=== PATIENT | male | born 1960 | race Caucasian/White ===

== ENCOUNTER 2018-07-16 11:11 | Emergency (ER) | payer MEDICARE, MEDICAID ==
[~2018-07-16] VITALS: Ht 162.6 cm; Wt 93.4 kg
[2018-07-16] MEDS ORDERED: SYNTHROID50 MCG PO (11:29)
[2018-07-16] MEDS ORDERED: IRON325 PO (11:30)
[2018-07-16] MEDS ORDERED: CULTURELLE1 EACH PO (11:30)
[2018-07-16] MEDS ORDERED: AMITIZA 24 MCG24 MC1 PO (11:30)
[2018-07-16] MEDS ORDERED: HALOPERIDOL 5 MG5 MG PO ×2 (11:31→11:39)
[2018-07-16] MEDS ORDERED: CLARITIN10 MG PO (11:31)
[2018-07-16] MEDS ORDERED: MUCINEX600 MG PO (11:31)
[2018-07-16] MEDS ORDERED: RISPERDAL 3 MG T3 MG PO (11:32)
[2018-07-16] MEDS ORDERED: ZOLOFT50 MG PO (11:34)
[2018-07-16] MEDS ORDERED: VESICARE10 M1 PO (11:34)
[2018-07-16] MEDS ORDERED: TUMS PO (11:35)
[2018-07-16] MEDS ORDERED: BACLOFEN 10MG T10 MG PO (11:35)
[2018-07-16] MEDS ORDERED: FIBER-LAX625 MG PO (11:36)
[2018-07-16] MEDS ORDERED: CONSTULOSE10 GM/152 PO (11:36)
[2018-07-16] MEDS ORDERED: PERIDEX15 ML PO (11:36)
[2018-07-16] MEDS ORDERED: STOOL SOFTENER1 EAC2 PO (11:37)
[2018-07-16] MEDS ORDERED: ZANTAC 150MG T150 MG PO (11:37)
[2018-07-16] MEDS ORDERED: PROSCAR 5MG TABL5 MG PO (11:38)
[2018-07-16] MEDS ORDERED: ATIVAN0.5 MG PO (11:38)
[2018-07-16] MEDS ORDERED: RISPERIDONE ODT4 MG PO (11:39)
[2018-07-16] MEDS ORDERED: SIMVASTATIN40 MG PO (11:39)
[2018-07-16] MEDS ORDERED: TYLENOL325 MG PO (11:40)
[2018-07-16] MEDS ORDERED: FLOMAX0.4 MG PO (11:40)
[2018-07-16] MEDS ORDERED: CALMOSEPTINE O3.5 GM TOP (11:40)
[2018-07-16] MEDS ORDERED: TESSALON PERLE100 MG PO (11:41)
[2018-07-16] MEDS ORDERED: MILK OF MA400 MG/5 M PO (11:42)
[2018-07-16] MEDS ORDERED: NYAMYC15 GM TOP (11:42)
[2018-07-16] MEDS ORDERED: ONDANSETRON HCL4 M2 PO (11:42)
[2018-07-16] MEDS ORDERED: TRIPLE ANTIBIOT28 G2 TOP (11:43)
[2018-07-16] MEDS ORDERED: ROLAIDS CHEWAB1 EAC1 PO (11:43)
[2018-07-16 12:21] LABS: ABSOLUTE EOSINOPHILS 0.2 thou/uL (0.0-0.7); ABSOLUTE LYMPHOCYTES 0.6 thou/uL (0.8-5.3); ABSOLUTE MONOCYTES 0.7 thou/uL (0.0-1.2); ABSOLUTE NEUTROPHILS 3.5 thou/uL (1.6-8.1); BASOPHILS 0.7 %; EOSINOPHILS 3.8 %; HEMOGLOBIN 13.1 gm/dL (14.0-18.0); LYMPHOCYTES 12.2 %; MCH 29.7 pg (26.0-34.0); MCHC 33.5 g/dL (28.0-37.0); MCV 88.7 fL (80.0-100.0); MONOCYTES 13.2 %; MPV 8.1 fl. (7.2-11.1); NUCLEATED RBCS 0 /100WBC; PLATELET COUNT* 195 thou/uL (150-400); POLYS 70.1 %; RBC 4.39 mil/uL (4.50-6.00); RDW-CV 14.4 % (10.5-14.5)
[2018-07-16 12:31] LABS: CREATININE 0.9 mg/dL (0.6-1.3); POTASSIUM 3.8 mmol/L (3.5-5.1)
[2018-07-16 12:34] LABS: APTT 31.3 Seconds (25.0-31.3); PROTIME 10.4 Seconds (9.20-11.50)
[2018-07-16 12:36] LABS: ALBUMIN 3.3 g/dL (3.4-5.0); TOTAL BILIRUBIN 0.3 mg/dL (<0.1-1.0)
[2018-07-16] MEDS ORDERED: MEDROLDOSEPACK PO (14:51)
[2018-07-16] MEDS ORDERED: NABUMETONE 750750 M1 PO (14:51)
[2018-07-16 15:03] VITALS: BP 129/71
== END 2018-07-16 15:05 | disposition home or self-care (01) ==
LOC: M.ERS 11:11
PROVIDERS: Nurse Practitioner Family
DX: L95.8 Other vasculitis limited to the skin (principal); M79.89 Other specified soft tissue disorders; E78.5 Hyperlipidemia, unspecified; F20.9 Schizophrenia, unspecified; F32.9 Major depressive disorder, single episode, unspecified; K21.9 Gastro-esophageal reflux disease without esophagitis; F41.9 Anxiety disorder, unspecified; E03.9 Hypothyroidism, unspecified; G47.30 Sleep apnea, unspecified; Z86.2 Personal history of diseases of the blood and blood-forming organs and certain disorders involving the immune mechanism

== ENCOUNTER 2018-07-26 17:55 | Inpatient (IN) | payer MEDICARE, MEDICAID ==
[~2018-07-26] VITALS: Ht 162.6 cm; Wt 93.1 kg
--- NOTE | ~2018-07-26 | CON ---
[facility] [address] [place] [address] CONSULTATION Name: ABILIO RUSH Room: [address] IN .R.#: [id number] Admission: 07/26/18 Attend Phys: Ani Flores MD Discharge: Date of : 62 Report #: [id number] THIS REPORT FOR: //name// CC: RAMANA physician/PCP Ani Flores DATE OF SERVICE: 07/27/2018 HISTORY OF PRESENT ILLNESS: This is a 58-year-old male patient who was evaluated by me for a poorly defined history. His speech is affected and it is difficult to get history from him. I called the patient's group billing coordinator and she provided some history. He is in [place] [facility] [place] [facility] year, but she has known him even prior to that. This patient has multiple problems. He has cerebral palsy and he is paraplegic. Paraplegia is going on for long time, but is progressively becoming worst. She developed a rash and they saw the family physician and then, they saw an Emergency Room physician, they thought the patient had vasculitis, but they did not have any followup appointment with a adjunct nursing faculty. The history for which she is admitted is not very clear. Apparently, he is a schizophrenic and he was having some flare-up in that regard. Somebody noticed that his eyes were rolling backward. He just said he was not feeling right. He was drooling more than normal. That is the best history I can get. The patient indicates that he does not feel well, but he cannot tell me why he is not feeling well. REVIEW OF SYSTEMS: Partly from the patient, partly from the cytogenetics laboratory manager of the [place] [facility] and partly from the records. It has been noted in the record that he had some auditory hallucination, hyperlipidemia, schizophrenia, non-Hodgkin lymphoma, allergic rhinitis, major depression, cerebral palsy, one of the records indicates malignant neoplasm of the bronchus and lungs and apparently, he had a ventricular shunt in, but it is not clear if it is still in or not. He does have a history of anxiety, hypothyroidism, sleep apnea. There is some history, which states that he has urinary retention, but when I talked to the cytogenetics laboratory manager, he said he is able to go by himself. 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 He is on a lot of medications including some psychiatric medications. This was the relevant 14-point review of systems as I can get. PAST MEDICAL HISTORY: Looks like is positive for schizophrenia and cerebral diplegia. FAMILY HISTORY: Unavailable. SOCIAL HISTORY: He lives in a [place] [facility] [place] and I talked to the [place] [address] CONSULTATION Name: ABILIO RUSH Room: [address] IN .R.#: [id number] Admission: 07/26/18 Attend Phys: Ani Flores MD Discharge: Date of : 62 Report #: [id number] PHYSICAL EXAMINATION: Pretty limited. He does not cooperate very well with examination. He is alert. He is responsive. He will sometime follow commands. His speech is pretty dysarthric and very difficult to understand. I cannot tell about the memory and fund of knowledge. Cranial nerve examination 2-12 was attempted. I cannot tell about the visual field or fundus examination because he does not cooperate much. His neuromuscular examination was attempted. He has a flicker of movement in his both feet, but he did not move his legs for me. When he relaxes, I think the reflexes are there. He gets position sense most of the time right. He does have increased tone, but that is his baseline. I could not look at the fundus, difficult to do cerebellar examinations on him. He has a petechial rash all over his body. His cardiac examination appear noncontributory. He does not appear to have any respiratory difficulty or rhonchi. He does not have much edema, cyanosis or jaundice. His blood pressure is 112/64, respiration is 16, pulse is 80, temperature is 98.4. LABORATORY DATA: His white count is 6.4. Sodium is normal. He did have a CT scan of the head and does not appear to be showing any acute changes. He does have some metal in his brain, which appeared to be the wires, I am not sure what exactly it is. I need to talk to the radiologist about that. IMPRESSION: This patient appeared to have multiple problems. I am not certain what the etiology of the patient's symptom is and how many problem he is having at the moment. We will exclude the possibility of seizure in this patient, but the history is not very classical. His schizophrenia may be decompensating, but he also has trouble with schizophrenia before and I think he needs a psychiatric consult. He has a dermatological rash, which needs to be further worked up. No adjunct nursing faculty comes here, but I am not sure whether that has any relation to that. If his diplegia is worse, then we need to workup his spine to make sure there are no associated abnormalities there. This is going on for more than a year. Chances of finding something reversible is remote, but I think we need to work him up if we can. That is not easy because he cannot provide any history and I cannot tell whether there is any contraindication for doing an MRI or not. RECOMMENDATION: 1. I will try to talk to the radiologist to see if there is any contraindication for doing an MRI on the basis of the CT of the head he had. 2. I will get an EEG. 3. I will suggest a psychiatric consult. 4. He also needs a Dermatology consult, but no adjunct nursing faculty comes here. 5. We will get him evaluated by PT, [place] [address] CONSULTATION Name: ABILIO RUSH Room: [address] IN [facility]#: [id number] Admission: 07/26/18 Attend Phys: Ani Flores MD Discharge: Date of : 62 Report #: [id number] I am off for next four days and Dr. Tijerina will follow up this patient until next week. Thank you very much for this referral. By: 0902 25Adi Brasher MD /nt
[~2018-07-26 17:55] MED LIST: AMITIZA 24 MCG24 MC1 PO; ATIVAN0.5 MG PO; BACLOFEN 10MG T10 MG PO; CALMOSEPTINE O3.5 GM TOP; CLARITIN10 MG PO; CONSTULOSE10 GM/152 PO; CULTURELLE1 EACH PO; FIBER-LAX625 MG PO; FLOMAX0.4 MG PO; HALOPERIDOL 5 MG5 MG PO; IRON325 PO; MEDROLDOSEPACK PO; MILK OF MA400 MG/5 M PO; MUCINEX600 MG PO; NABUMETONE 750750 M1 PO; NYAMYC15 GM TOP; ONDANSETRON HCL4 M2 PO; PERIDEX15 ML PO; PROSCAR 5MG TABL5 MG PO; RISPERDAL 3 MG T3 MG PO; RISPERDAL4 MG PO; ROLAIDS CHEWAB1 EAC1 PO; SIMVASTATIN40 MG PO; STOOL SOFTENER1 EAC2 PO; SYNTHROID50 MCG PO; TESSALON PERLE100 MG PO; TRIPLE ANTIBIOT28 G2 TOP; TUMS PO; TYLENOL325 MG PO; VESICARE10 M1 PO; ZANTAC 150MG T150 MG PO; ZOLOFT50 MG PO
[2018-07-26 18:02] VITALS: BP 152/92
[2018-07-26 19:06] LABS: ABSOLUTE BASOPHILS 0.1 thou/uL (0.0-0.2); ABSOLUTE EOSINOPHILS 0.2 thou/uL (0.0-0.7); ABSOLUTE MONOCYTES 0.8 thou/uL (0.0-1.2); ABSOLUTE NEUTROPHILS 4.4 thou/uL (1.6-8.1); BASOPHILS 0.8 %; EOSINOPHILS 2.5 %; HEMATOCRIT 39.4 % (42.0-52.0); HEMOGLOBIN 12.9 gm/dL (14.0-18.0); MCH 29.2 pg (26.0-34.0); MCHC 32.8 g/dL (28.0-37.0); MCV 88.9 fL (80.0-100.0); MONOCYTES 12.4 %; MPV 8.5 fl. (7.2-11.1); NUCLEATED RBCS 0 /100WBC; PLATELET COUNT* 216 thou/uL (150-400); POLYS 68.3 %; RBC 4.43 mil/uL (4.50-6.00); RDW-CV 14.4 % (10.5-14.5); WBC 6.4 thou/uL (4.0-11.0)
[2018-07-26 19:15] LABS: ANION GAP 7 mmol/L (7-16); BUN 9 mg/dL (7-18); CALCIUM 8.7 mg/dL (8.5-10.1); CHLORIDE 106 mmol/L (98-107); CO2 31 mmol/L (21-32); CREATININE 0.9 mg/dL (0.6-1.3); GLUCOSE 91 mg/dL (70-99); POTASSIUM 3.9 mmol/L (3.5-5.1); SODIUM 144 mmol/L (136-145)
[2018-07-26 19:17] LABS: APTT 29.4 Seconds (25.0-31.3); PROTIME 10.7 Seconds (9.20-11.50)
[2018-07-26 19:27] LABS: ALBUMIN 3.3 g/dL (3.4-5.0); ALKALINE PHOSPHATASE 65 U/L (46-116); LIPASE 84 U/L (73-393); SGOT 18 U/L (15-37); SGPT 20 U/L (30-65); TOTAL BILIRUBIN 0.3 mg/dL (<0.1-1.0); TOTAL PROTEIN 6.9 g/dL (6.4-8.2); TROPONIN-I LEVEL <0.06 ng/mL (<0.06)
[2018-07-26 21:50] LABS: URINE BILIRUBIN NEGATIVE (Negative); URINE BLOOD NEGATIVE (Negative); URINE CLARITY CLEAR; URINE COLOR YELLOW; URINE GLUCOSE-RANDOM NEGATIVE (Negative); URINE KETONES NEGATIVE (Negative); URINE LEUKOCYTES-REFLEX NEGATIVE (Negative); URINE NITRITE-REFLEX NEGATIVE (Negative); URINE PROTEIN NEGATIVE (Negative); URINE SPECIFIC GRAVITY 1.015 (1.005-1.030); URINE UROBILINOGEN 0.2 E.U./dl (0.2-1.0)
[2018-07-26 21:59] LABS: AMP/METHAMP Negative (Negative); BARBITURATES Negative (Negative); BENZODIAZEPINES Negative (Negative); COCAINE Negative (Negative); METHADONE Negative (Negative); OPIATES Negative (Negative); PCP Negative (Negative); THC Negative (Negative)
[2018-07-26 22:14] VITALS: BP 160/84
[2018-07-26] MEDS ORDERED: COLACE100 MG PO (22:55)
[2018-07-26 22:56] VITALS: BP 158/85
[2018-07-26] MEDS ORDERED: NEOSPORIN OIN28.3 GM TOP (22:58)
[2018-07-26] MEDS ORDERED: CALMOSEPTINE OI71 GM TOP (23:00)
[2018-07-26] MEDS ORDERED: GUAIFENESIN DM S5 ML PO (23:03)
[2018-07-27 04:00] VITALS: BP 112/64
--- NOTE | 2018-07-27 05:53 | NUR ---
Received report and assumed care of patient from ER approx 2215. Patient alert and oriented to himself, place, and somewhat situation. Unable to state full birthday and current year. Patient denies pain and discomfort. VSS on room air. Patient's caregiver from care home at bedside and assisted with admission history. Patient has cerebral palsy and typically wears bilat leg braces and is only able to pivot using grab bar to his electric wheelchair. However, caregiver has taken leg braces and wc home with her, along with all other patient belongings. Patient is on nectar thickened liquids and [facility] soft diet. Small pressure ulcer to left buttock, pictures taken and dressed with bordered optifoam. Repositioned q2h. Call light within reach.
--- NOTE | 2018-07-27 11:14 | NUR ---
CM spoke with Pt's warehouse associate, Ashwini, at his correction, Erick Chacon. Staff assist with ADLs, per CG, Pt's legs don't move alot but he is able to stand with assist, but does not ambulate. Pt uses an electric wc for mobility. No home o2. Pt is able to feed himself. Pt does not have a legal guardian or DPOA, Pt's father is supportive and involved in POC. Hx of HH. No hx of SNF. Goal is home at nm. Following.
[2018-07-27 11:37] VITALS: BP 121/76
[2018-07-27] MEDS ORDERED: NYAMYC15 GM TOP (12:04)
[2018-07-27 12:35] LABS: ABSOLUTE EOSINOPHILS 0.1 thou/uL (0.0-0.7); ABSOLUTE LYMPHOCYTES 0.4 thou/uL (0.8-5.3); ABSOLUTE MONOCYTES 0.6 thou/uL (0.0-1.2); ABSOLUTE NEUTROPHILS 5.2 thou/uL (1.6-8.1); BASOPHILS 0.4 %; EOSINOPHILS 2.1 %; HEMATOCRIT 35.7 % (42.0-52.0); HEMOGLOBIN 11.9 gm/dL (14.0-18.0); LYMPHOCYTES 6.3 %; MCH 29.3 pg (26.0-34.0); MCHC 33.4 g/dL (28.0-37.0); MPV 8.8 fl. (7.2-11.1); NUCLEATED RBCS 0 /100WBC; PLATELET COUNT* 169 thou/uL (150-400); POLYS 82.2 %; RBC 4.06 mil/uL (4.50-6.00); RDW-CV 14.2 % (10.5-14.5); WBC 6.3 thou/uL (4.0-11.0)
--- NOTE | 2018-07-27 12:42 | NUR ---
WOUND NURSE: PATIENT SEEN TO [facility] 2 PRESSURE ULCER ON LEFT BUTTOCK. PRESENTS WITH PARTIAL THICKNESS TISSUE LOSS MEASURIN 0.3 X 0.3 X 0.1 CM. SCANT SEROUS DRAINAGE ON OLD DRESSING. NO SIGNIFICANT PERIWOUND REDNESS, WARMTH OR INDURATION. PATIENT MINIMAL VERBALIZATION AND NOT REPORTING RELATED PAIN. CLEANSED WTIH AREA WITH CLEANSING WIPES, APPLIED SKIN PREP TO PERIWOUND TISSUE. COVERED WITH A BORDERED FOAM DRESSING. PLAN FOR CHANGE EVERY 3 DAYS AND NEEDED. EVERY 1 TO 2 HOUR SIDE TO SIDE REPOSITIONIN SUGGESTED.
[2018-07-27 12:57] LABS: CALCIUM 8.4 mg/dL (8.5-10.1); CREATININE 0.7 mg/dL (0.6-1.3); MAGNESIUM 1.9 mg/dL (1.8-2.4); POTASSIUM 3.4 mmol/L (3.5-5.1); TOTAL BILIRUBIN 0.3 mg/dL (<0.1-1.0); TOTAL PROTEIN 6.3 g/dL (6.4-8.2)
[2018-07-27 16:31] VITALS: BP 98/72
--- NOTE | 2018-07-27 17:36 | EKG ---
[place] [address] ELECTROCARDIOGRAM REPORT Name: ABILIO RUSH Room: [address] ADM IN .R.#: [id number] Admission: 07/26/18 Attend Phys: Ani Flores MD Discharge: Date of : 62 Report #: [id number] THIS REPORT FOR: //name// [facility] ED Test Date: 2018-07-26 Test Time: 19:09:27 Pat Name: ABILIO RUSH Department: Room: [facility] Gender: M Landcare Facilitator: [place] : 1960 Requested By: Ninfa Borrero Order Number: [id number] MD: ePdro Elam Measurements Intervals [place] Rate: 89 P: [place]: QRS: -16 QRSD: 94 T: 34 QT: 386 QTc: 470 Interpretive Statements Atrial fibrillation Inferior infarct, old No previous ECG available for comparison Electronically Signed On 07-27-2018 17:36:34 CDT by Pedro Elam [email or web address] <ELECTRONICALLY SIGNED> By: Pedro Elam MD, [facility] 07/27/18 1736 1909 08 Pedro Elam MD, FACC /EPI
--- NOTE | 2018-07-27 20:00 | NUR ---
RECEIVED REPORT AND ASSUMED CARE OF PT, ASSESSMENT COMPLETED. PT NON-VERBAL BUT ABLE TO UNDERSTAND A FEW WORDS SUCH HIS NAME. HOB ELEVATED, HAVING OCC MOIST PROD COUGH, ON RA WITH O2 SAT 95%. TELEMETRY ON SHOWING ST. WILL CONT TO MONITOR AND ASSIST NEEDED.
[2018-07-28 00:01] VITALS: BP 102/62
[2018-07-28 04:00] VITALS: BP 98/63
--- NOTE | 2018-07-28 05:44 | NUR ---
SLEPT WELL TONIGHT. SLEEP APNEA NOTED. HAVING OCC MOIST HARSH COUGH, PRODUCTIVE. PT TURNED Q 2HR, DOES NOT ASSIST WITH THIS. PT DOES HAVE A CHANGE IN MENTATION DURING TURNS, BLANK STARE. NO CHANGE WITH ASSESSMENT OR TELEMETRY, CONT TO SHOW ST/SR. HS GOALS OF REST AND SAFETY ACHIEVED. HOURLY ROUNDING OBSERVED.
[2018-07-28 12:24] VITALS: BP 112/55
--- NOTE | 2018-07-28 13:19 | NUR ---
Nutrition: Pt admitted with weakness and AMS. H/o MR, schizo, MDD, GERD, cerebral palsy. Seen for pressure ulcer on coccyx. Albumin 3. Wt: 192#. Regular diet with NO RED FOODS. RD ordered Prasanna bid to aid in wound healing. Mild risk at this time.
--- NOTE | 2018-07-28 15:23 | EKG ---
[place] [address] ELECTROCARDIOGRAM REPORT Name: ABILIO URSH Room: [address] ADM IN M.R.#: [id number] Admission: 07/26/18 Attend Phys: Ani Flores MD Discharge: Date of : 62 Report #: [id number] THIS REPORT FOR: //name// [facility] Test Date: 2018-07-28 Test Time: 12:00:29 Pat Name: ABILIO RUSH Department: Room: [address] Gender: M Accounts Specialist: 28 : 1960 Requested By: Darrell Cooley Order Number: [id number] Christo MD: Anthony Goodman Measurements Intervals [place] Rate: 87 P: 50 NM: 157 QRS: -13 QRSD: 86 T: 14 QT: 388 QTc: 467 Interpretive Statements Sinus rhythm Inferior infarct, old Compared to ECG 07/26/2018 19:09:27 Myocardial infarct finding still present Electronically Signed On 07-28-2018 15:23:27 CDT by Anthony Goodman [email or web address] <ELECTRONICALLY SIGNED> By: Anthony Goodman MD, [facility] 07/28/18 1523 1200 1200 Anthony Goodman MD, FAC /EPI
[2018-07-28 16:19] VITALS: BP 121/67
--- NOTE | 2018-07-28 17:54 | NUR ---
NENA RESTING IN BED. UP TO WHEELCHAIR WITH MAX ASSIST X2 AND GAIT BELT. AOX4 WITH DIFFICULTY COMMUNICATING. PATIENT CXAREGIVER STATES THAT SHE FEELS HE IS AT BASELINE AND HE IS ALREADY FOLLOWED BY PSYCHIATRY OUTPATIENT. RAMON COLEMANIN COMPLETED FOR PATINT SAFETY
[2018-07-28 20:00] VITALS: BP 111/63
[2018-07-29] VITALS: BP 94/67
[2018-07-29 04:00] VITALS: BP 100/63
[2018-07-29 05:00] LABS: HEMATOCRIT 30.5 % (42.0-52.0); HEMOGLOBIN 10.4 gm/dL (14.0-18.0); MCH 30.1 pg (26.0-34.0); MCHC 34.1 g/dL (28.0-37.0); MCV 88.2 fL (80.0-100.0); MPV 8.7 fl. (7.2-11.1); RBC 3.46 mil/uL (4.50-6.00); RDW-CV 14.5 % (10.5-14.5); WBC 5.8 thou/uL (4.0-11.0)
[2018-07-29 05:06] LABS: CREATININE 0.8 mg/dL (0.6-1.3); MAGNESIUM 2.2 mg/dL (1.8-2.4); POTASSIUM 3.9 mmol/L (3.5-5.1)
--- NOTE | 2018-07-29 06:07 | NUR ---
ASSUMED CARE OF PT AFTER REPORT AT 1930. PT A&OX3. VSS. PHYSICAL ASSESSMENT COMPLETED AND CHARTED. PT ON O2 AT 2L NC. PT TRACING SR/ST ON TELE. PT DENIES ANY PAIN OR DISCOMFORT. PT TURNED TO SIDES. PT RESTED WELL ON BED. CALL LIGHT WITHIN REACH.
[2018-07-29 12:00] VITALS: BP 108/61
[2018-07-29 15:03] VITALS: BP 108/61
== END 2018-07-29 17:45 | disposition home or self-care (01) | DRG 92 ==
LOC: M.ERS 17:55 → M.2W 21:14 → M.TBA-ER 21:14 → M.2W 21:59
PROVIDERS: Internal Medicine; Nurse Practitioner Family; ADMIT Family Medicine
DX: G92 Toxic encephalopathy (principal); E44.1 Mild protein-calorie malnutrition; G80.9 Cerebral palsy, unspecified; F20.9 Schizophrenia, unspecified; R23.3 Spontaneous ecchymoses; E78.5 Hyperlipidemia, unspecified; F32.9 Major depressive disorder, single episode, unspecified; K21.9 Gastro-esophageal reflux disease without esophagitis; E03.9 Hypothyroidism, unspecified; F41.1 Generalized anxiety disorder; R13.10 Dysphagia, unspecified; T50.905A Adverse effect of unspecified drugs, medicaments and biological substances, initial encounter; Y92.89 Other specified places as the place of occurrence of the external cause; Z85.71 Personal history of Hodgkin lymphoma; Z85.118 Personal history of other malignant neoplasm of bronchus and lung; Z79.899 Other long term (current) drug therapy

== ENCOUNTER 2018-11-23 09:04 | Inpatient (IN) | payer MEDICARE, MEDICAID ==
[~2018-11-23] VITALS: Ht 162.6 cm; Wt 83.5 kg
--- NOTE | ~2018-11-23 | CON ---
[facility] [address] [place] [address] CONSULTATION Name: ABILIO RUSH Room: [address] IN .R.#: [id number] Admission: 11/23/18 Attend Phys: Darrell Cooley MD Discharge: Date of : 62 Report #: [id number] THIS REPORT FOR: //name// CC: Darrell Mobley HISTORY OF PRESENT ILLNESS: A 58-year-old male with significant schizophrenia, developmental delay, cerebral palsy, non-Hodgkin's lymphoma, hypothyroidism, who is presenting with constipation and coffee-ground emesis. It has been difficult to obtain history because the patient has speech difficulties and has a history of cerebral palsy. Most of the history has been obtained from the chart and some by interviewing the patient. The patient reports that he has had abdominal pain for several days and also reports constipation with inability to pass bowel movements without any laxatives. The patient receives daily enemas at his facility. The patient was brought in because of nausea and vomiting associated with coffee-ground emesis. There has been no hematemesis, melena or hematochezia. The patient's weight has been stable. PAST MEDICAL HISTORY: Significant for schizophrenia, non-Hodgkin's lymphoma, major depression, developmental delay, hypothyroidism. FAMILY HISTORY: Unable to obtain due to the patient's mental status. SOCIAL HISTORY: The patient lives in a fpc, does not consume alcohol, tobacco or any recreational drugs. REVIEW OF SYSTEMS: Negative except for what was mentioned in the HPI. PHYSICAL EXAMINATION: VITAL SIGNS: Temperature 36.8, pulse rate 91, blood pressure 125/69, respirations 16 per minute. The patient is saturating 96% on room air. GENERAL: The patient is alert, awake, oriented x 3. HEENT: Pupils are equal, round, reactive to light and accommodation. Mucous membranes are moist. There is no congestion. LUNGS: Clear to auscultation bilaterally. CARDIOVASCULAR: Rate and rhythm regular, S1, S2 present. ABDOMEN: Soft. There is no significant distention, guarding or rigidity. EXTREMITIES: Warm, well perfused. LABORATORY DATA: Hemoglobin 11.7, hematocrit 35.6, platelet count 200, WBC count 6.6. Sodium 141, potassium 4.0, chloride 106, bicarbonate 30, BUN 13, creatinine 0.8, total bilirubin 0.1, AST 9, ALT 16, alkaline phosphatase 55, albumin 3.0, lipase 129. IMAGING: Abdomen and pelvis CT demonstrates a large amount of stool, possibly cystitis, [place] [address] CONSULTATION Name: ABILIO RUSH Ruthie Room: [address] IN [facility]#: [id number] Admission: 11/23/18 Attend Phys: Darrell Cooley MD Discharge: Date of : 62 Report #: [id number] ASSESSMENT AND PLAN: A pleasant 58-year-old gentleman with history as outlined above, presenting with coffee-ground emesis. We will place the patient on clear liquid diets and place him on EGD for tomorrow. Further recommendations will be based on results of the EGD. By: 1741 [id number] De La Torre MD /nt
[~2018-11-23 09:04] MED LIST changes: +CALMOSEPTINE OI71 GM TOP; -CLARITIN10 MG PO; +COLACE100 MG PO; +GUAIFENESIN DM S5 ML PO; +LORATADINE 1 MG/1 ML PO; +NEOSPORIN OIN28.3 GM TOP
[2018-11-23 09:05] VITALS: BP 106/69
--- NOTE | 2018-11-23 09:13 | NUR ---
PT CAME IN VIA EMS FROM THE [facility]. STAFF MEMBER CAME IN FROM THE CENTER AND STATES THE PT IS HIS OWN GUARDIAN.
[2018-11-23 09:24] LABS: ABSOLUTE EOSINOPHILS 0.1 thou/uL (0.0-0.7); ABSOLUTE LYMPHOCYTES 0.6 thou/uL (0.8-5.3); ABSOLUTE MONOCYTES 0.7 thou/uL (0.0-1.2); ABSOLUTE NEUTROPHILS 5.1 thou/uL (1.6-8.1); BASOPHILS 0.5 %; EOSINOPHILS 1.8 %; HEMATOCRIT 35.6 % (42.0-52.0); HEMOGLOBIN 11.7 gm/dL (14.0-18.0); LYMPHOCYTES 9.2 %; MCH 27.9 pg (26.0-34.0); MCV 84.7 fL (80.0-100.0); MONOCYTES 10.2 %; MPV 8.2 fl. (7.2-11.1); NUCLEATED RBCS 0 /100WBC; PLATELET COUNT* 200 thou/uL (150-400); POLYS 78.3 %; RDW-CV 14.8 % (10.5-14.5); WBC 6.6 thou/uL (4.0-11.0)
[2018-11-23 09:33] LABS: ANION GAP 5 mmol/L (7-16); BUN 13 mg/dL (7-18); CALCIUM 8.2 mg/dL (8.5-10.1); CHLORIDE 106 mmol/L (98-107); CO2 30 mmol/L (21-32); CREATININE 0.8 mg/dL (0.6-1.3); GLUCOSE 113 mg/dL (70-99); SODIUM 141 mmol/L (136-145)
[2018-11-23 09:42] LABS: ALKALINE PHOSPHATASE 55 U/L (46-116); LIPASE 129 U/L (73-393); SGOT 9 U/L (15-37); SGPT 16 U/L (30-65); TOTAL BILIRUBIN 0.1 mg/dL (<0.1-1.0); TOTAL PROTEIN 6.5 g/dL (6.4-8.2); TROPONIN-I LEVEL <0.06 ng/mL (<0.06)
[2018-11-23 13:19] VITALS: BP 104/71
[2018-11-23 13:46] VITALS: BP 116/67
--- NOTE | 2018-11-23 14:30 | NUR ---
RECEIVED REPORT FROM RIYA RN IN ER OF EXPECTED ADMISSION AT 1317- DX: UPPER GI BLEED- PT ARRIVED TO ROOM 229 VIA CART WITH ASSITANCE VIA SLIDE X4 TO BED- WICKER WORKER PLACED ORDERED, TRACING SR/ST- PT A&O X3 WITH FORGETFULLNESS NOTED- INCONTINENT OF BOWEL AND BLADDER- BED REST IN PLACE WITH Q 2HOUR TURNS INDICATED- LCTA, RESP EVEN AND UN-LABORED- VS- 98.0 18 116/67 95 98% ON RA- ABD SOFT/ROUND/NON-TENDER, BS X4 QUADS- PT REPORTED TO HAVE HAD BM PRIOR TO TRANSFER FROM ER- CLEAR NECTAR LIQUID DIET NOTED- GI PLANS EGD HCRISTIE 11/24/18, PT TO BE NPO AT MIDNIGHT- REDNESS NOTED TO BOTTOM- SALES AND SERVICE ENGINEER AT BEDSIDE AT TIME OF ADMISSION-CALL LIGHT AND PERSONAL BELONGINGS WITH IN REACH- HOURLY ROUNDS IN PLACE R/T SAFETY/NEEDS- ALL NEEDS MET AT THIS TIME-WCTM
[2018-11-23] MEDS ORDERED: VESICARE10 M1 PO (14:35)
--- NOTE | 2018-11-23 14:35 | EKG ---
[place] [address] ELECTROCARDIOGRAM REPORT Name: ABILIO RUSH Room: [address] ADM IN .R.#: [id number] Admission: 11/23/18 Attend Phys: Darrell Cooley MD Discharge: Date of : 62 Report #: [id number] THIS REPORT FOR: //name// [facility] ED Test Date: 2018-11-23 Test Time: 09:09:42 Pat Name: ABILIO RUSH Department: Room: [facility] Gender: M Helper Metal Hanging: : 1960 Requested By: Clifton Kwok Order Number: [id number] MD: Anthony Goodman Measurements Intervals [place] Rate: 101 P: 61 [place]: 155 QRS: -10 QRSD: 82 T: 24 QT: 369 QTc: 479 Interpretive Statements Sinus tachycardia Inferior infarct, old Compared to ECG 07/28/2018 12:00:29 Sinus rhythm no longer present Myocardial infarct finding still present Electronically Signed On 11-23-2018 14:35:08 CDT by Anthony Goodman [email or web address] <ELECTRONICALLY SIGNED> By: Anthony Goodman MD, [facility] 11/23/18 9441 0909 0909 Anthony Goodman MD, [facility] /EPI
[2018-11-23] MEDS ORDERED: BENZTROPINE ME0.5 MG PO (14:37)
[2018-11-23] MEDS ORDERED: PERIDEX15 ML PO (14:39)
[2018-11-23] MEDS ORDERED: HALOPERIDOL 5 MG5 MG PO (14:40)
[2018-11-23] MEDS ORDERED: VRAYLAR3 MG PO (14:43)
[2018-11-23] MEDS ORDERED: ENEMA BOTTLE1 EACH RECTAL (14:44)
[2018-11-23 14:47] LABS: HEMATOCRIT 33.1 % (42.0-52.0)
[2018-11-23] MEDS ORDERED: ONDANSETRON HCL4 M2 PO (14:47)
[2018-11-23] MEDS ORDERED: NABUMETONE 750750 M1 PO (14:47)
[2018-11-23 16:16] VITALS: BP 125/69
[2018-11-23 18:10] LABS: HEMATOCRIT 31.4 % (42.0-52.0); HEMOGLOBIN 10.3 gm/dL (14.0-18.0); MCH 27.8 pg (26.0-34.0); MCHC 32.8 g/dL (28.0-37.0); MCV 84.8 fL (80.0-100.0); MPV 8.6 fl. (7.2-11.1); RBC 3.7 mil/uL (4.50-6.00); RDW-CV 14.7 % (10.5-14.5); WBC 5.8 thou/uL (4.0-11.0)
[2018-11-23 20:10] VITALS: BP 109/64
[2018-11-23 22:46] LABS: HEMATOCRIT 30.2 % (42.0-52.0)
[2018-11-24] VITALS (7 sets, daily range): BP systolic 94–111; BP diastolic 51–69
[2018-11-24 04:56] LABS: HEMATOCRIT 30.3 % (42.0-52.0); HEMOGLOBIN 9.9 gm/dL (14.0-18.0); MCH 27.9 pg (26.0-34.0); MCHC 32.7 g/dL (28.0-37.0); MCV 85.5 fL (80.0-100.0); MPV 8.6 fl. (7.2-11.1); RBC 3.55 mil/uL (4.50-6.00); WBC 5.2 thou/uL (4.0-11.0)
[2018-11-24 05:03] LABS: CALCIUM 8.1 mg/dL (8.5-10.1); CREATININE 0.8 mg/dL (0.6-1.3); MAGNESIUM 2.1 mg/dL (1.8-2.4); POTASSIUM 3.9 mmol/L (3.5-5.1)
--- NOTE | 2018-11-24 07:28 | NUR ---
PT ORIENTED TO SELF. KNOWS HE'S IN A HOSPITAL. ASSESSMENT DOCUMENTED. MEDS GIVEN PER EMAR. ONE AT A TIME WITH NECTER THICKENED LIQUID. PT IS A FEEDER. LW IV WITH NS @100 AND PROTONIX @20. PT SLEPT MOST OF SHIFT. NPO AFTER MN. EGD TODAY. Q2 TURN. HOURLY ROUNDINGS DONE. FALL PRECAUTION IN PLACE. WILL CONTINUE TO MONITOR.
--- NOTE | 2018-11-24 09:29 | NUR ---
ASSUMED CARE OF PT THIS AM AROUND 0715- ROLLOFF DRIVER IN PLACE ORDERED, TRACING SR- UPON ASSESSMENT PT NOTED TO BE RESTING IN BED-PT A&O X2 WITH NOTED CONFUSSION, LIMITED VERBALIZATION- INCONTINENT OF B/B- Q 2HOUR TURNS IN PLACE INDICATED- LCTA/DIMINISHED IN BASES- VSS, O2 SAT 93% ON RA- ABD FIRM/ROUND/NON-TENDER, BS X4 QUADS- LAST BM NOTED 11/23/18- IV NOTED TO LEFT WRIST INTACT, IVF AND PROTONIX INFUSSING PRESCIBED- PT NPO THIS AM FOR PLANNED EGD- PT LEFT UNIT VIA BED AROUND 0830 FOR EGD- NO C/O PAIN NOTED- ALL NEEDS MET AT THIS TIME-WCTM
--- NOTE | 2018-11-24 16:15 | NUR ---
PT CURRENTLY RESTING IN BED, WATCHING TV- MEDICAL DEVICE SALES IN PLACE ORDERED, TRACING SR- EGD COMPLETED THIS AM PRESCIBED, RESULTS NOTED IN MEDITECH- PROTONIX TO CONTINUE X24 HOURS THEN SWITCH TO PO PER GI- IV NOTED TO LEFT WRIST INTACT, IVF AND PROTONIX INFUSSING PRESCIBED- Q 2HOUR TURNS IN PLACE INDICATED- ASSISTANCE REQUIRED WITH MEALS, PUREE DIET NOTED WITH NECTAR LIQUIDS; GOOD PO INTAKE NOTED- NO PAIN/DISTRESS NOTED AT THIS TIME- HOURLY ROUNDS IN PLACE INDICATED- ALL NEEDS MET AT THIS TIME-WCTM
--- NOTE | 2018-11-24 16:33 | NUR ---
MET WITH PATIENT IN ROOM; CALL TO LONGTERM PATROL INSPECTOR, TAMY, WITH PATIENT PERMISSION. PER TAMY, PATIENT PCP IS DR RENNY RODRIGUEZ AT [facility]. SHE ALSO REPORTS PATIENT WOULD LIKE TO BE EVALUATED FOR INPATIENT REHAB OR REHAB THERAPY AT THE LONGTERM IF HE QUALIFIES. REPORTS PATIENT HAS HAD PHYSICAL DECLINE OVER LAST SEVERAL MONTHS AND IS NOT AT HIS BASELINE OF PHYSICAL ACTIVITY AND MOBILITY. UPDATE PROVIDED TO PATIENT AFTER CONVERSATION WITH TAMY COMPLETED.
[2018-11-25] VITALS: BP 96/62
[2018-11-25 04:00] VITALS: BP 94/55
[2018-11-25 05:11] LABS: ABSOLUTE EOSINOPHILS 0.2 thou/uL (0.0-0.7); ABSOLUTE LYMPHOCYTES 0.8 thou/uL (0.8-5.3); ABSOLUTE MONOCYTES 0.5 thou/uL (0.0-1.2); ABSOLUTE NEUTROPHILS 3.4 thou/uL (1.6-8.1); BASOPHILS 0.5 %; EOSINOPHILS 4.5 %; HEMOGLOBIN 9.3 gm/dL (14.0-18.0); LYMPHOCYTES 16.2 %; MCH 28.1 pg (26.0-34.0); MCHC 33.1 g/dL (28.0-37.0); MONOCYTES 10.4 %; MPV 8.6 fl. (7.2-11.1); NUCLEATED RBCS 0 /100WBC; PLATELET COUNT* 160 thou/uL (150-400); POLYS 68.4 %; RBC 3.29 mil/uL (4.50-6.00); RDW-CV 14.4 % (10.5-14.5)
[2018-11-25 05:38] LABS: ALBUMIN 2.5 g/dL (3.4-5.0); CALCIUM 8.1 mg/dL (8.5-10.1); CREATININE 0.7 mg/dL (0.6-1.3); MAGNESIUM 2.1 mg/dL (1.8-2.4); POTASSIUM 3.8 mmol/L (3.5-5.1); TOTAL BILIRUBIN 0.2 mg/dL (<0.1-1.0); TOTAL PROTEIN 5.3 g/dL (6.4-8.2)
[2018-11-25 06:04] LABS: ESR (SEDRATE) 8 mm/hr (0-20)
[2018-11-25 09:20] VITALS: BP 108/61
--- NOTE | 2018-11-25 10:00 | NUR ---
ASSUMED CARE AFTER REPORT APPROX 0730. ORIENTED TO SELF AND SITUATION. UNABLE TO EFFECTIVELY EXPRESS NEEDS TO STAFF. FREQUENT OBSERVATION. GREEN TIRE INSPECTOR IN PLACE, SR/ST. O2 SATS >92% ON RA. PUREED DIET WITH NECTAR THICK LIQUIDS, MEDS CRUSHED WITH APPLESAUCE. FREQUENT REPOSITIONING TO MAINTAIN SKIN INTEGRITY. CALL LIGHT WITHIN REACH. HOURLY ROUNDING FOR SAFETY AND PATIENT NEEDS.
[2018-11-25 11:15] VITALS: BP 112/70
[2018-11-25 16:00] VITALS: BP 124/70
[2018-11-25 20:00] VITALS: BP 104/61
[2018-11-26 00:54] VITALS: BP 135/72
[2018-11-26 04:00] VITALS: BP 112/67
[2018-11-26 05:11] LABS: ABSOLUTE EOSINOPHILS 0.2 thou/uL (0.0-0.7); ABSOLUTE LYMPHOCYTES 0.9 thou/uL (0.8-5.3); ABSOLUTE MONOCYTES 0.6 thou/uL (0.0-1.2); ABSOLUTE NEUTROPHILS 3.6 thou/uL (1.6-8.1); BASOPHILS 0.6 %; EOSINOPHILS 3.8 %; HEMATOCRIT 29.3 % (42.0-52.0); HEMOGLOBIN 9.7 gm/dL (14.0-18.0); LYMPHOCYTES 17.3 %; MCHC 33.2 g/dL (28.0-37.0); MCV 84.2 fL (80.0-100.0); NUCLEATED RBCS 0 /100WBC; PLATELET COUNT* 169 thou/uL (150-400); POLYS 67.3 %; RBC 3.49 mil/uL (4.50-6.00); RDW-CV 14.4 % (10.5-14.5); WBC 5.3 thou/uL (4.0-11.0)
--- NOTE | 2018-11-26 05:17 | NUR ---
ASSUMED CARE OF PT AFTER REPORT AT 1930. PT A&OX4. VSS. PHYSICAL ASSESSMENT COMPLETED AND CHARTED. PT ON RA. PT TRACING SR ON TELE. PT DENIES ANY PAIN OR DISCOMFORT. PT WITH EPISODES OF INCONTINENT BLADDER. PT TURNED TO SIDES. CALL LIGHT WITHIN REACH.
[2018-11-26 05:19] LABS: CALCIUM 8.4 mg/dL (8.5-10.1); CREATININE 0.7 mg/dL (0.6-1.3); POTASSIUM 3.3 mmol/L (3.5-5.1)
--- NOTE | 2018-11-26 08:30 | NUR ---
ASSUMED CARE AFTER REPORT APPROX 0730. ORIENTED TO SELF AND SITUATION. UNABLE TO EXPRESS NEEDS EFFECTIVELY TO STAFF. PASTE MIXING SUPERVISOR IN PLACE, SR. O2 SATS > 92% RA. FREQUENT OBSERVATION, REPOSITIONING AND INCONTINENCE CARE TO MAINTAIN SKIN INTEGRITY. CALL LIGHT WITHIN IN REACH. HOURLY ROUNDING FOR SAFETY AND PATIENT NEEDS.
[2018-11-26 09:30] VITALS: BP 126/58
[2018-11-26 12:00] VITALS: BP 119/69
[2018-11-26 16:00] VITALS: BP 130/73
[2018-11-26 20:00] VITALS: BP 128/58
[2018-11-27 00:46] VITALS: BP 114/59
[2018-11-27 04:20] VITALS: BP 120/63
--- NOTE | 2018-11-27 06:05 | NUR ---
ASSUMED CARE OF PT AFTER REPORT AT 1930. PT A&OX4. VSS. PHYSICAL ASSESSMENT COMPLETED AND CHARTED. PT ON RA. PT TRACING SR ON TELE. PT DENIES ANY PAIN OR DISCOMFORT. PT WITH EPISODES OF INCONTINENT BOWEL. PT ABLE TO SLEEP WELL ON BED. CALL LIGHT WITHIN REACH.
[2018-11-27 08:00] VITALS: BP 116/68
[2018-11-27] MEDS ORDERED: PANTOPRAZOLE SO40 M1 PO (10:18)
--- NOTE | 2018-11-27 10:58 | NUR ---
ORDERS NOTED FOR DC WITH HH. CALL TO [facility]/TAMY, PT HAS HAD [facility] IN PAST, WOULD LIKE AGAIN. CALLED AND FAXED REFERRAL TO [facility] INTAKE. TAMY IS ARRANGING W/C VAN DC HOME AROUND 430 TODAY, WOULD LIKE DC INFO PACKET, RECORDS AND REPORT TO HER. NURSE UPDATED
[2018-11-27 10:59] VITALS: BP 120/63
[2018-11-27 11:11] VITALS: BP 120/63
--- NOTE | 2018-11-27 16:04 | NUR ---
called and gave report to [facility]
[2018-11-27 17:00] VITALS: BP 110/72
--- NOTE | 2018-11-27 18:15 | NUR ---
PT CAREGIVER HERE TO STAFF RESEARCH ASSOCIATE PT, DISCHARGE PACKET GIVEN, PT HAD NO IV ACCESS.
--- NOTE | 2018-11-28 08:07 | PATH ---
[facility] [address] [place] [address] PATHOLOGY RPT PROCEDURE Name: TOMASZ RUSH Room: [address] IN M.R.#: [id number] Admission: 11/23/18 Date of : 62 Discharge: 11/27/18 Report #: [id number] Path Case #: [id number] [facility] Accession Number: [id number] . 01 Material submitted: . esophagus - ESOPHAGEAL BIOPSY AT 33MM AT SORIA'S . 01 Clinical history: . None provided . 02 Diagnosis: Tissue submitted as "esophageal biopsy at 33 mm": - Benign esophageal and gastric/columnar types mucosa with moderate chronic and active inflammation typical of reflux, negative for goblet cells/diagnostic Soria's metaplasia, granulomas and dysplasia. (LEONARDO:pit; 11/27/2018) QTP 11/27/2018 1248 Local . 02 Electronically signed: . Jose Zamarripa MD, Pathologist NPI- [id number] . 01 Gross description: . The specimen is received in formalin, labeled "Tomasz Rush, esophageal biopsy at 33 mm at Soria's" and consists of multiple fragments of pink-love tissue measuring 0.8 x 0.5 x 0.2 cm in aggregate which are entirely submitted in A1. (SDY; 11/24/2018) SYU/SYU 11/24/2018 1620 Local . 02 Pathologist provided ICD-10: K20.9 . 02 CPT . 302013 Specimen Comment: A courtesy copy of this report has been sent to Specimen Comment: [phone], , . Specimen Comment: Report sent to ,DR PAGE / DR REEVES Specimen Comment: A duplicate report has been generated due to demographic updates. Performed at: [address], [place], [place] [id number] MD Kishore Paul MD Phone: [phone] Performed at: [facility] [address], [place], [place] [id number] MD Jose Zamarripa MD Phone: [phone]
== END 2018-11-27 18:21 | disposition home health service (06) | DRG 378 ==
LOC: M.ERS 09:04 → M.TBA-ER 10:55 → M.2W 10:55
PROVIDERS: Emergency Medicine Emergency Medical Services; Internal Medicine Gastroenterology; ADMIT Internal Medicine
PROC: 0DB38ZX Excision of Lower Esophagus, Via Natural or Artificial Opening Endoscopic, Diagnostic (ICD-10-PCS; principal; 2018-11-24)
DX: K29.71 Gastritis, unspecified, with bleeding (principal); D62 Acute posthemorrhagic anemia; E44.1 Mild protein-calorie malnutrition; G80.1 Spastic diplegic cerebral palsy; E78.5 Hyperlipidemia, unspecified; F20.9 Schizophrenia, unspecified; Z85.72 Personal history of non-Hodgkin lymphomas; F32.9 Major depressive disorder, single episode, unspecified; F41.9 Anxiety disorder, unspecified; E03.9 Hypothyroidism, unspecified; K59.09 Other constipation; R33.9 Retention of urine, unspecified; R07.9 Chest pain, unspecified; K21.0 Gastro-esophageal reflux disease with esophagitis; K44.9 Diaphragmatic hernia without obstruction or gangrene; K22.70 Barrett's esophagus without dysplasia; K27.4 Chronic or unspecified peptic ulcer, site unspecified, with hemorrhage; K22.8 Other specified diseases of esophagus; Z98.2 Presence of cerebrospinal fluid drainage device; Z91.5 Personal history of self-harm; Z79.899 Other long term (current) drug therapy; Q68.5 Congenital bowing of long bones of leg, unspecified; Z68.31 Body mass index [BMI] 31.0-31.9, adult

== ENCOUNTER → 2019-02-13 | Day surgery (SDC) | payer MEDICARE, MEDICAID ==
[~2019-02-13] MED LIST changes: +ACID REDUCER20 MG PO; +ARIPIPRAZOLE OD10 MG PO; +BENZTROPINE ME0.5 MG PO; +ENEMA BOTTLE1 EACH RECTAL; +IBU800 MG PO; +PANTOPRAZOLE SO40 M1 PO; +VRAYLAR1.5 MG PO; +VRAYLAR3 MG PO
[2019-02-13 11:14] LABS: ABSOLUTE EOSINOPHILS 0.2 thou/uL (0.0-0.7); ABSOLUTE LYMPHOCYTES 0.8 thou/uL (0.8-5.3); ABSOLUTE MONOCYTES 0.5 thou/uL (0.0-1.2); ABSOLUTE NEUTROPHILS 3.7 thou/uL (1.6-8.1); WBC 5.2 thou/uL (4.0-11.0)
[2019-02-13 11:20] LABS: CALCIUM 9.2 mg/dL (8.5-10.1); CREATININE 0.9 mg/dL (0.6-1.3); POTASSIUM 4.2 mmol/L (3.5-5.1)
[2019-02-13 11:23] LABS: BASOPHILS 0.7 %; HEMATOCRIT 36.5 % (42.0-52.0); HEMOGLOBIN 12.1 gm/dL (14.0-18.0); LYMPHOCYTES 15.7 %; MCH 27.9 pg (26.0-34.0); MCV 84.6 fL (80.0-100.0); MPV 8.3 fl. (7.2-11.1); NUCLEATED RBCS 0 /100WBC; PLATELET COUNT* 163 thou/uL (150-400); POLYS 70.6 %; RBC 4.31 mil/uL (4.50-6.00); RDW-CV 20.3 % (10.5-14.5)
[2019-02-13 11:25] LABS: ALBUMIN 3.3 g/dL (3.4-5.0); TOTAL BILIRUBIN 0.3 mg/dL (<0.1-1.0); TOTAL PROTEIN 6.7 g/dL (6.4-8.2)
[2019-02-13 11:41] LABS: PLATELET ESTIMATE ADEQUATE
[2019-02-13 12:21] LABS: ESR (SEDRATE) 12 mm/hr (0-20)
--- NOTE | 2019-02-15 14:07 | PATH ---
[address] [address] PATHOLOGY RPT PROCEDURE Name: NORMAN RUSH Room: [facility] M.R.#: [id number] Admission: 02/13/19 Date of : 62 Discharge: Report #: [id number] Path Case #: [id number] [facility] Accession Number: [id number] . 01 Material submitted: . esophagus - ESOPHAGEAL BIOPSY AT 34CM, POSSIBLE SORIA'S . 01 Clinical history: . Esophagitis; possible Soria's . 02 Diagnosis: Esophageal biopsy at 34 cm: - Benign esophageal and gastric/columnar types mucosa with moderate chronic and active inflammation, typical of reflux, negative for goblet cells/diagnostic Soria's metaplasia, granulomas and dysplasia. . (LEONARDO:mml; 02/15/2019) QL 02/15/2019 1403 Local . 02 Electronically signed: . Jose Zamarripa MD, Pathologist NPI- [id number] . 01 Gross description: . The specimen is received in formalin, labeled "Tomasz Rush, esophageal biopsy at 34 cm, possible Soria's". Received are three segments of pale love soft tissue ranging in size from 0.3 to 0.5 cm in maximum dimensions. The specimen is submitted entirely in cassette A1. (CAA; 02/14/2019) QAC/QA 02/14/2019 1303 Local . 02 Pathologist provided ICD-10: K20.9 . 02 CPT . 047731 Specimen Comment: A courtesy copy of this report has been sent to [phone], [phone] Specimen Comment: [phone] Specimen Comment: Report sent to and Performed at: 01 [facility] [address] [place] [address] [address], [place], [place] [id number] MD Kishore Paul MD Phone: [phone] Performed at: [address] [address] [place], [place] [id number] MD Jose Zamarripa MD Phone: [phone]
== END | disposition home or self-care (01) ==
LOC: M.SUR 07:20
PROVIDERS: Internal Medicine Gastroenterology
DX: K21.0 Gastro-esophageal reflux disease with esophagitis (principal); K44.9 Diaphragmatic hernia without obstruction or gangrene; D64.9 Anemia, unspecified; F32.9 Major depressive disorder, single episode, unspecified; F41.9 Anxiety disorder, unspecified; E03.9 Hypothyroidism, unspecified; F20.9 Schizophrenia, unspecified; G47.30 Sleep apnea, unspecified; G80.1 Spastic diplegic cerebral palsy; Z98.890 Other specified postprocedural states; Z79.899 Other long term (current) drug therapy; Z85.72 Personal history of non-Hodgkin lymphomas